=== PATIENT | female | born 1955 | race Caucasian/White ===

== ENCOUNTER 2018-12-22 10:00 | Outpatient (RCR) | payer OTHER | END 2018-12-25 | LOC: PT 10:00 | PROVIDERS: ATTEND Specialist | DX: M16.12 Unilateral primary osteoarthritis, left hip (principal) ==

== ENCOUNTER 2019-01-20 15:00 | Outpatient (RCR) | payer OTHER | END 2019-01-25 | LOC: PT 15:00 | PROVIDERS: ATTEND Specialist | DX: M16.12 Unilateral primary osteoarthritis, left hip (principal); M71.552 Other bursitis, not elsewhere classified, left hip ==

== ENCOUNTER 2019-02-03 13:00 | Outpatient (RCR) | payer OTHER | END 2019-02-24 | LOC: PT 13:00 | PROVIDERS: ATTEND Specialist | DX: M16.12 Unilateral primary osteoarthritis, left hip (principal); M70.62 Trochanteric bursitis, left hip; M25.552 Pain in left hip; M62.81 Muscle weakness (generalized) | CPT/HCPCS: 97139 ==

== ENCOUNTER 2019-03-24 07:17 | Inpatient (IN) | payer OTHER ==
[~2019-03-24] VITALS: Ht 165.1 cm; Wt 62.2 kg
[~2019-03-24 07:17] MED LIST: ACETAMINOPHEN325 M1 PO; ALEVE220 MG PO; AMLODIPINE BESYL5 MG PO; BUPIVACAINE 7.5MG/ML /DEXTROSE 82.5MG/ML 2 ML AMP INJ ONE; IBUPROFEN400 MG PO; ROPIVACAINE 246.25 MG, EPINEPHRINE HCL 1:1000 1ML 0.5 MG, CLONIDINE HCL 0.08 MG, KETORO... INJ ONE
[2019-03-24] MEDS ORDERED: DEXAMETHASONE SOD PHOS 10 MG/1 ML VIAL ONE (07:32)
[2019-03-24] MEDS ORDERED: CELECOXIB 200 MG CAP ONE (07:32)
[2019-03-24] MEDS ORDERED: CEFAZOLIN SOD 2 GM/D5W 50ML 50 ML IV ONE (07:33)
[2019-03-24] MEDS ORDERED: GABAPENTIN 300 MG CAP ONE (07:33)
[2019-03-24 07:54] LABS: BASOPHILS % 0.4 % (0.0-1.0); EOSINOPHILS # (AUTO) 0.7 (0.0-0.4); EOSINOPHILS % 9.7 % (0.0-6.0); HEMATOCRIT 37.6 % (34.2-44.1); HEMOGLOBIN 12.6 g/dL (12.0-16.0); LYMPHOCYTES # (AUTO) 1.2 (1.0-3.2); LYMPHOCYTES % 18.3 % (18.0-39.1); MEAN CORPUSCULAR HEMOGLOBIN 30.1 pg (28-32); MEAN CORPUSCULAR HGB CONC 33.5 g/dL (31-35); MEAN CORPUSCULAR VOLUME 89.7 fL (81-99); MONOCYTES # (AUTO) 0.6 (0.2-0.8); MONOCYTES % 8.8 % (4.4-11.3); NEUTROPHILS # (AUTO) 4.2 (2.1-6.9); NEUTROPHILS % 62.5 % (38.7-80.0); PLATELET COUNT 340 x10e3/uL (140-360); RED BLOOD COUNT 4.19 x10e6/uL (3.6-5.1); RED CELL DISTRIBUTION WIDTH 13.3 % (11.7-14.4)
[2019-03-24] MEDS ORDERED: VANCOMYCIN HCL 1,000 MG ONE (07:55)
[2019-03-24] MEDS ORDERED: TRANEXAMIC ACID 1,000 MG/10 ML ML ONE (07:55)
[2019-03-24] MEDS ORDERED: BACITRACIN 50,000 UNIT VIAL ONE (07:55)
[2019-03-24] MEDS ORDERED: SODIUM CHLORIDE 0.9% 500ML 500 ML ONE (08:09)
--- OUTSIDE RECORDS SUMMARY | 2019-03-24 08:10 | XMS REPORT ---
Author Author Geronimo Diego Organization [employer] Address Unknown Phone Unavailable Care Team Providers Care Wafer Polishing Worker Name Role Phone Geronimo Diego CP Unavailable Allergies, Adverse Reactions, Alerts Substance Reaction Event Type N.K.D.A. Info Not Available Non Drug Allergy Problems Problem Type Condition Code Onset Dates Condition Status Assessment Gastroesophageal reflux disease without esophagitis K21.9 Active Problem Annual physical exam Z00.00 Active Assessment HTN (hypertension), benign I10 Active Assessment Counseling on health promotion and disease prevention Z71.89 Active Problem HTN (hypertension), benign I10 Active Problem Hot flashes due to menopause N95.1 Active Problem Gastroesophageal reflux disease without esophagitis K21.9 Active Problem ASCUS of cervix with negative high risk HPV R87.610 Active Problem HTN (hypertension) I10 Active Problem Primary insomnia F51.01 Active Problem Essential hypertension I10 Active Medications Medication Code System Code Instructions Start Date End Date Status Dosage Vitamin D-3 [facility] 33354706498 1000 UNIT Orally Once a day Active 1 capsule Calcium [facility] 34604947376 600 MG Orally Once a day Active 1 tablet with meals Benadryl NDC 0 Active not defined Phenylephrine HCl [facility] [address]-00 as needed Active not defined Turmeric [facility] [address] 800 MG Orally once a day Active 1 capsule Vitamin B12 [facility] 95246521842 1000 MCG Orally Once a day Active 1 tablet Amlodipine Besylate [facility] 66867834772 5 orally daily Active TAKE ONE TABLET BY MOUTH DAILY Oregano NDC 0 Active not defined Betamethasone Dipropionate [facility] 29185647712 0.05 % Externally Once a day February 24, 2018 Active 1 application to affected area Centrum Adults [facility] [address]-72 Active not defined Vital Signs Date/Time: May 27, 2018 BMI 24.25 Index Weight 148 lbs Height 65.5 in Temperature 98.3 F Blood Pressure Diastolic 91 mm Hg Blood Pressure Systolic 147 mm Hg Results No Known Results Summary Purpose eClinicalWorks Submission
--- OUTSIDE RECORDS SUMMARY | 2019-03-24 08:10 | XMS REPORT ---
Author Author Geronimo Diego Organization [employer] Address Unknown Phone Unavailable Care Team Providers Care Brick Carrier Name Role Phone Geronimo Diego CP Unavailable Allergies, Adverse Reactions, Alerts Substance Reaction Event Type N.K.D.A. 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 Active Assessment Other specified disorders of bone density and structure, left thigh M85.852 Active Assessment Primary insomnia F51.01 Active Problem Essential hypertension I10 Active Problem ASCUS of cervix with negative high risk HPV R87.610 Active Problem Primary insomnia F51.01 Active Assessment HTN (hypertension) I10 Active Assessment ASCUS of cervix with negative high risk HPV R87.610 Active Problem Annual physical exam Z00.00 Active Problem HTN (hypertension) I10 Active Medications Medication Code System Code Instructions Start Date End Date Status Dosage Amlodipine Besylate [facility] [address]-29 5 MG Orally Once a day Jun 18, 2016 Active 1 tablet Calcium [facility] [address] 600 MG Orally Once a day Active 1 tablet with meals Calcium-Vitamin D [facility] [address] Active not defined Vitamin C [facility] [address] Active not defined Vitamin D-3 [facility] [address] 1000 UNIT Orally Once a day Active 1 capsule Turmeric [facility] [address] 800 MG Orally once a day Active 1 capsule Vitamin B-12 [facility] [address]-70 1000 MCG Orally Once a day Active 1 tablet Amlodipine Besylate [facility] 58473782217 5 Active TAKE ONE TABLET BY MOUTH DAILY Varicella-Zoster Immune Glob [facility] [address]-90 125 UNIT Intramuscular Sep 13, 2016 Active as directed Centrum Adults [facility] [address]-95 Active not defined Vital Signs Date/Time: May 06, 2017 BMI 24.42 Index Weight 149 lbs Height 65.5 in Temperature 98.3 F Blood Pressure Diastolic 83 mm Hg Blood Pressure Systolic 127 mm Hg Results No Known Results Summary Purpose eClinicalWorks Submission
--- OUTSIDE RECORDS SUMMARY | 2019-03-24 08:10 | XMS REPORT ---
Author Author Geronimo Diego Organization [employer] Address Unknown Phone Unavailable Care Team Providers Care It Security Administrator Name Role Phone Geronimo Diego CP Unavailable Allergies, Adverse Reactions, Alerts Substance Reaction Event Type N.K.D.A. Info Not Available Non Drug Allergy Problems Problem Type Condition Code Onset Dates Condition Status Assessment HTN (hypertension) I10 Active Assessment Right hip pain M25.551 Active Problem Primary insomnia F51.01 Active Problem Essential hypertension I10 Active Problem Hot flashes due to menopause N95.1 Active Problem Annual physical exam Z00.00 Active Assessment Hot flashes due to menopause N95.1 Active Problem ASCUS of cervix with negative high risk HPV R87.610 Active Problem HTN (hypertension) I10 Active Medications Medication Code System Code Instructions Start Date End Date Status Dosage Phenylephrine HCl [facility] [address]-01 as needed Active not defined Amlodipine Besylate [facility] 89623894941 5 MG Orally Once a day Jun 18, 2016 Active 1 tablet Calcium [facility] 69173493824 600 MG Orally Once a day Active 1 tablet with meals Turmeric [facility] [address] 800 MG Orally once a day Active 1 capsule Centrum Adults [facility] [address]-68 Active not defined Vitamin B12 [facility] 42710022540 1000 MCG Orally Once a day Active 1 tablet Amitriptyline HCl [facility] 01161305057 25 MG Orally Once a day Nov 06, 2017 Active 1 tablet Vitamin D-3 [facility] 72823804751 1000 UNIT Orally Once a day Active 1 capsule Vital Signs Date/Time: Nov 06, 2017 BMI 23.84 Index Weight 145.5 lbs Height 65.5 in Temperature 99.4 F Blood Pressure Diastolic 84 mm Hg Blood Pressure Systolic 136 mm Hg Results No Known Results Immunizations Vaccine Administration Date Afluria (IIV4) Flu Vacc IM Nov 06, 2017 Summary Purpose eClinicalWorks Submission
--- OUTSIDE RECORDS SUMMARY | 2019-03-24 08:10 | XMS REPORT ---
[facility] Address Unknown Phone Unavailable Care Team Providers Care Local Az Truck Driver Name Role Phone Unavailable Unavailable Payers Payer Name Policy Type Policy Number Effective Date Expiration Date Problems This patient has no known problems. Allergies, Adverse Reactions, Alerts Allergy Name Allergy Type Status Severity Reaction(s) Onset Date Inactive Date Treating Clinician Comments No Known Allergies DA Active U 2018-10-07 00:00:00 Medications This patient has no known medications. Results Test Description Test Time Test Comments Text Results Atomic Results Result Comments SCR MAMM BILATERAL ERNESTINE CAD DIGITAL 2018-10-23 07:44:31 - SCR MAMM BILATERAL ERNESTINE CAD DIGITALBILATERAL DIGITAL SCREENING MAMMOGRAM 3D/2D WITH CAD: 10/01/2018CLINICAL: Asymptomatic. Digital breast tomosynthesis was performed in addition to routine CC and MLO views. Current mammographic images were evaluated by either a Pixelpipe M-Vu or a [employer] ImageChecker CAD (computer aided detection system). No prior exams were available for comparison. There are sca ttered fibroglandular tissues in both breasts. No suspicious mass, architectural distortion, malignant type calcification, or lymph node abnormality detected. IMPRESSION: NEGATIVEThere is no mammographic evidence of malignancy. Resume annual screening mammography in one year. Basim smith/penrey:10/23/2018 07:44:31 Leader Tier: Terra Chanel , [facility]-FWletter sent: BIRADS 1-2 Normal Mammogram BI-RADS: 1 Negative SCR MAMM BILATERAL ERNESTINE CAD DIGITAL 2018-10-23 07:44:31 AMENDMENT: 11/21/2018 Ankita Ashton M.D. Prior exams dating back to 01/10/15 are now available for comparison.Bilateral breasts: No significant change the prior report. There is no mammographic evidence of malignancy. Resume annual screening mammography in one year.BI-RADS 1. Negative.Amended BI-RADS: 1 Negative letter sent: Normal Comparison Completed
--- OUTSIDE RECORDS SUMMARY | 2019-03-24 08:10 | XMS REPORT ---
Author Author Geronimo Diego [facility] eClinicalWorks Address Unknown Phone Unavailable Care Team Providers Care Commercial Relationship Manager Name Role Phone Geronimo Diego Unavailable Allergies, Adverse Reactions, Alerts Substance Reaction Event Type N.K.D.A. Info Not Available Non Drug Allergy Encounters Encounter Location Date test [place] Jun 18, 2016 sick visit 2 [facility] [place] Jun 18, 2016 ANNUAL PHYSICAL [facility] Jun 04, 2016 Needs call back from Medical Staff [facility] [place] [place] Jun 11, 2016 Unknown [facility] [place] Jun 13, 2016 Problems Problem Type Condition ICD-9 Code Onset Dates Condition Status Problem HTN (hypertension) I10 Active Assessment HTN (hypertension) I10 Active Problem Annual physical exam Z00.00 Active Medications Medication Code System Code Instructions Start Date End Date Status Dosage [facility] [address] Active Unknown [facility] [address]-83 Active Unknown Amlodipine Besylate [facility] [address]-62 5 MG Orally Once a day Jun 18, 2016 Active 1 tablet Vitamin B-12 [facility] [address]-20 1000 MCG Orally Once a day Active 1 tablet Calcium-Vitamin D [facility] [address] Active Unknown Social History Social History Element Qualifiers Date Reported Tobacco Use: . Are you a: Never Smoker Jun 18, 2016 Use of recreational / street drugs? . Answer: No Jun 18, 2016 Alcohol Screening: . Points: 2, Interpretation: Negative Jun 18, 2016 Sexual Hx: . Had sex in the last 12 months (vaginal, oral, or anal)?: No, Have you ever had an STD?: No Jun 18, 2016 Marital Status: . Single Jun 18, 2016 Caffeine intake? . Status: Yes, What type: Coffee Jun 18, 2016 Do you exercise? . Answer: Yes, Type: walking, swimming, Yoga Jun 18, 2016 Do you drink alcohol? . Do you drink alcohol? Yes Jun 18, 2016 Vital Signs Date/Time: Jun 18, 2016 Weight 133 lbs Height 65.5 in Temperature 97.1 F Blood Pressure Diastolic 98 mm Hg Blood Pressure Systolic 142 mm Hg Summary Purpose eClinicalWorks Submission
--- OUTSIDE RECORDS SUMMARY | 2019-03-24 08:10 | XMS REPORT ---
Author Author Geronimo Diego Organization [employer] Address Unknown Phone Unavailable Care Team Providers Care Twister Tender Name Role Phone Geronimo Diego CP Unavailable Encounters Encounter Location Date test [facility] Jun 18, 2016 ANNUAL PHYSICAL [facility] [place] Jun 04, 2016 Needs call back from Medical Staff [facility] [place] [place] Jun 11, 2016 Unknown [facility] [place] [place] Jun 13, 2016 Problems Problem Type Condition ICD-9 Code Onset Dates Condition Status Problem HTN (hypertension) I10 Active Problem Annual physical exam Z00.00 Active Social History Social History Element Qualifiers Date [...] you drink alcohol? Yes Jun 18, 2016 Summary Purpose eClinicalWorks Submission
--- OUTSIDE RECORDS SUMMARY | 2019-03-24 08:10 | XMS REPORT ---
Author Author Geronimo Diego Organization [employer] Address Unknown Phone Unavailable Care Team Providers Care Casting Associate Name Role Phone Geronimo Diego CP Unavailable Allergies, Adverse Reactions, Alerts Substance Reaction Event Type N.K.D.A. Info Not Available Non Drug Allergy Problems Problem Type Condition Code Onset Dates Condition Status Assessment Left hip pain M25.552 Active Problem Annual physical exam Z00.00 Active Problem HTN (hypertension), benign I10 Active Problem Hot flashes due to menopause N95.1 Active Problem Gastroesophageal reflux disease without esophagitis K21.9 Active Problem ASCUS of cervix with negative high risk HPV R87.610 Active Problem HTN (hypertension) I10 Active Problem Primary insomnia F51.01 Active Problem Essential hypertension I10 Active Assessment Flu vaccine need Z23 Active Assessment Colon cancer screening Z12.11 Active Assessment Osteoporosis screening Z13.820 Active Assessment HTN (hypertension) I10 Active Assessment Breast cancer screening Z12.31 Active Medications Medication Code System Code Instructions Start Date End Date Status Dosage Turmeric [facility] [address] 800 MG Orally once a day Active 1 capsule Vitamin D-3 [facility] 03252351743 1000 UNIT Orally Once a day Active 1 capsule Betamethasone Dipropionate [facility] 97209465509 0.05 % Externally Once a day February 24, 2018 Active 1 application to affected area Benadryl NDC 0 Active not defined Calcium [facility] 46107056235 600 MG Orally Once a day Active 1 tablet with meals Centrum Adults [facility] [address]-17 Active not defined Oregano NDC 0 Active not defined Amlodipine Besylate [facility] 59563102250 5 orally daily Active TAKE ONE TABLET BY MOUTH DAILY Phenylephrine HCl [facility] [address]-34 as needed Active not defined Vitamin B12 [facility] 07038469413 1000 MCG Orally Once a day Active 1 tablet Vital Signs Date/Time: Aug 27, 2018 BMI 23.60 Index Weight 144 lbs Height 65.5 in Temperature 97.4 F Blood Pressure Diastolic 87 mm Hg Blood Pressure Systolic 138 mm Hg Results No Known Results Immunizations Vaccine Administration Date 2017 Single Syringe Fluecelvax Quad Aug 27, 2018 Summary Purpose eClinicalWorks Submission
--- OUTSIDE RECORDS SUMMARY | 2019-03-24 08:10 | XMS REPORT ---
Author Author Geronimo Diego Organization [employer] Address Unknown Phone Unavailable Care Team Providers Care Investigation Division Captain Name Role Phone Geronimo Diego CP Unavailable Encounters Encounter Location Date ANNUAL PHYSICAL [facility] Jun 04, 2016 Needs call back from Medical Staff [facility] [place] Jun 11, 2016 Problems Problem Type Condition ICD-9 Code Onset Dates Condition Status Problem HTN (hypertension) I10 Active Problem Annual physical exam Z00.00 Active Social History Social History Element Qualifiers Date Reported Tobacco Use: . Are you a: Never Smoker Jun 04, 2016 Use of recreational / street drugs? . Answer: No Jun 04, 2016 Alcohol Screening: . Points: 2, Interpretation: Negative Jun 04, 2016 Sexual Hx: . Had sex in the last 12 months (vaginal, oral, or anal)?: No, Have you ever had an STD?: No Jun 04, 2016 Marital Status: . Single Jun 04, 2016 Caffeine intake? . Status: Yes, What type: Coffee Jun 04, 2016 Do you exercise? . Answer: Yes, Type: walking, swimming, Yoga Jun 04, 2016 Do you drink alcohol? . Do you drink alcohol? Yes Jun 04, 2016 Summary Purpose eClinicalWorks Submission
--- OUTSIDE RECORDS SUMMARY | 2019-03-24 08:10 | XMS REPORT ---
Author Author Geronimo Diego [facility] eClinicalWorks Address Unknown Phone Unavailable Care Team Providers Care Dairy Scientist Name Role Phone Geronimo Diego CP Unavailable Allergies, Adverse Reactions, Alerts Substance Reaction Event Type N.K.D.A. Info Not Available Non Drug Allergy Encounters Encounter Location Date test [facility] Jun 18, 2016 sick visit 2 [facility] Jun 18, 2016 Unknown [facility] [place] January 01, 2017 [facility] [place] [facility] [place] December 31, 2016 ANNUAL PHYSICAL [facility] [place] Jun 04, 2016 Needs call back from Medical Staff [facility] [place] Jun 11, 2016 Unknown [facility] Jun 13, 2016 Problems Problem Type Condition ICD-9 Code Onset Dates Condition Status Assessment Skin rash R21 Active Problem ASCUS of cervix with negative high risk HPV R87.610 Active Problem Annual physical exam Z00.00 Active Problem Essential hypertension I10 Active Assessment HTN (hypertension) I10 Active Assessment ASCUS of cervix with negative high risk HPV R87.610 Active Problem HTN (hypertension) I10 Active Assessment Hip pain, left M25.552 Active Medications Medication Code System Code Instructions Start Date End Date Status [facility]osage [facility] [address]-31 1000 MCG Orally Once a day Active 1 tablet Calcium-Vitamin D [facility] [address] Active Unknown Centrum Adults [facility] [address]-75 Active Unknown Amlodipine Besylate [facility] [address]-89 5 MG Orally Once a day Jun 18, 2016 Active 1 tablet Vitamin C [facility] [address] Active Unknown Varicella-Zoster Immune Glob [facility] [address]-38 125 UNIT Intramuscular Sep 13, 2016 Active as directed Social History Social History Element Qualifiers Date Reported Tobacco Use: . Are you a: Never Smoker December 31, 2016 Use of recreational / street drugs? . Answer: No December 31, 2016 Alcohol Screening: . Points: 2, Interpretation: Negative December 31, 2016 Sexual Hx: . Had sex in the last 12 months (vaginal, oral, or anal)?: No, Have you ever had an STD?: No December 31, 2016 Marital Status: . Single December 31, 2016 Caffeine intake? . Status: Yes, What type: Coffee December 31, 2016 Do you exercise? . Answer: Yes, Type: walking, swimming, Yoga December 31, 2016 Do you drink alcohol? . Do you drink alcohol? Yes December 31, 2016 Occupation: . Employed December 31, 2016 Vital Signs Date/Time: December 31, 2016 Weight 135.5 lbs Height 65.5 in Temperature 97.2 F Blood Pressure Diastolic 91 mm Hg Blood Pressure Systolic 132 mm Hg Summary Purpose eClinicalWorks Submission
--- OUTSIDE RECORDS SUMMARY | 2019-03-24 08:10 | XMS REPORT ---
Author Author Geronimo Diego Organization [employer] Address Unknown Phone Unavailable Care Team Providers Care Entry Level Sales Associate Name Role Phone Geronimo Diego CP Unavailable Allergies, Adverse Reactions, Alerts Substance Reaction Event Type N.K.D.A. Info Not Available Non Drug Allergy Problems Problem Type Condition Code Onset Dates Condition Status Assessment Essential hypertension I10 Active Problem Primary insomnia F51.01 Active Problem Essential hypertension I10 Active Problem Hot flashes due to menopause N95.1 Active Problem Annual physical exam Z00.00 Active Assessment Skin rash R21 Active Problem ASCUS of cervix with negative high risk HPV R87.610 Active Problem HTN (hypertension) I10 Active Medications Medication Code System Code Instructions Start Date End Date Status Dosage Medrol [facility] 54790386605 4 MG Orally as directed Dec 03, 2017 Active as directed Mucinex [facility] [address]-09 Active not defined Amlodipine Besylate [facility] 83480982389 5 MG Orally Once a day Jun 18, 2016 Active 1 tablet Amitriptyline HCl [facility] 60083567287 25 MG Orally Once a day Nov 06, 2017 Active [address] [facility] 60988922743 600 MG Orally Once a day Active 1 tablet with meals Phenylephrine HCl [facility] [address]-24 as needed Active not defined Vitamin D-[address] [facility] 66568349874 1000 UNIT Orally Once a day Active [address] [facility] [address] 800 MG Orally once a day Active 1 capsule Amlodipine Besylate [facility] 89955369685 5 Active TAKE ONE TABLET BY MOUTH DAILY Benadryl ND 0 Active not defined Ranitidine HCl [facility] 72535701338 150 MG Orally Once a day February 24, 2018 Active 1 tablet at bedtime Betamethasone Dipropionate [facility] 74901403853 0.05 % Externally Once a day February 24, 2018 Active 1 application to affected area Vitamin B12 [facility] 62187141175 1000 MCG Orally Once a day Active 1 tablet Centrum Adults [facility] [address]-82 Active not defined MethylPREDNISolone [facility] 77694110063 4 MG Orally As directed February 24, 2018 Active as directed Vital Signs Date/Time: February 24, 2018 BMI 23.84 Index Weight 145.5 lbs Height 65.5 in Temperature 98.2 F Blood Pressure Diastolic 93 mm Hg Blood Pressure Systolic 153 mm Hg Results No Known Results Summary Purpose eClinicalWorks Submission
--- OUTSIDE RECORDS SUMMARY | 2019-03-24 08:10 | XMS REPORT | Continuity of Care Document ---
Author Author [facility] Interface Address Unknown Phone Unavailable Problems Problem Status Onset Date Classification Date Reported Comments Source Primary insomnia Active Problem 09/03/2018 Encamille Basurto Essential hypertension Active Problem 09/03/2018 Encamille Rodriguesm Hot flashes due to menopause Active Problem 09/03/2018 Enerinnet Liliam ASCUS of cervix with negative high risk HPV Active Problem 09/03/2018 Enerinnet Rakrupam HTN Active Problem 09/03/2018 Encamille Rodriguesm Passing flatus Active Diagnosis 05/12/2017 Ruth Rodriguesm Other specified disorders of bone density and structure, right thigh Active Diagnosis 05/12/2017 Ruth Rodriguesm Other specified disorders of bone density and structure, left thigh Active Diagnosis 05/12/2017 Encamille Rodriguesm Right hip pain Active Diagnosis 11/19/2017 Enerinnet Liliam Left hip pain Active Diagnosis 09/03/2018 Ruth Rodriguesm HTN , benign Active Problem 09/03/2018 Ruth Basurto Gastroesophageal reflux disease without esophagitis Active Problem 09/03/2018 Ruth Rodriguesm Flu vaccine need Active Diagnosis 09/03/2018 Ruth Basurto Osteoporosis screening Active Diagnosis 09/03/2018 Ruth Basurto Breast cancer screening Active Diagnosis 09/03/2018 Ruth Rodriguesm Hip pain, left Active Diagnosis 01/02/2017 Ruth Basurto Counseling on health promotion and disease prevention Active Diagnosis 06/04/2018 Ruth Rodriguesm Persistent cough Active Diagnosis 12/06/2017 Ruth Basurto Acute sinusitis with symptoms > 10 days Active Diagnosis 12/06/2017 Ruth Basurto Skin rash Active Diagnosis 03/03/2018 Encamille Rodriguesm Hip pain Active Diagnosis 01/03/2017 Ruth Basurto Medications Medication Details Route Status Patient Instructions Ordering Provider Order Date Source Betamethasone Dipropionate 1 application to affected area Externally Active 0.05 % Externally Once a day Brandie 02/24/2018 Ruth Basurto Ranitidine HCl 1 tablet at bedtime Orally Active 150 MG Orally Once a day [facility] 02/24/[facility] MethylPREDNISolone as directed Orally Active 4 MG Orally As directed [facility] 02/24/2018 [facility] Cefdinir 1 capsule Orally Active 300 MG Orally every 12 hrs [facility] 12/03/2017 [facility] Medrol as directed Orally Active 4 MG Orally as directed [facility] 12/03/2017 [facility] Amitriptyline HCl 1 tablet Orally Active 25 MG Orally Once a day [facility] 11/06/2017 [facility] Varicella-Zoster Immune Glob as directed Intramuscular Active 125 UNIT Intramuscular [facility] 09/13/2016 [facility] Varicella-Zoster Immune Glob as directed Intramuscular Active 125 UNIT Intramuscular [facility] 09/13/2016 [facility] Amlodipine Besylate 1 tablet Orally Active 5 MG Orally Once a day [facility] 06/18/2016 [facility] Amlodipine Besylate 1 tablet Orally Active 5 MG Orally Once a day [facility] 06/18/2016 [facility] Calcium 1 tablet with meals Orally Active 600 MG Orally Once a day [facility] Calcium-Vitamin D not defined NA Active [facility] Vitamin C not defined NA Active [facility] Vitamin D-3 1 capsule Orally Active 1000 UNIT Orally Once a day [facility] Turmeric 1 capsule Orally Active 800 MG Orally once a day [facility] Vitamin B-12 1 tablet Orally Active 1000 MCG Orally Once a day [facility] Amlodipine Besylate TAKE ONE TABLET BY MOUTH DAILY orally Active 5 orally daily [facility] Centrum Adults not defined NA Active [facility] Phenylephrine HCl not defined NA Active as needed [facility] Calcium 1 tablet with meals Orally Active 600 MG Orally Once a day [facility] Vitamin B12 1 tablet Orally Active 1000 MCG Orally Once a day [facility] Vitamin D-3 1 capsule Orally Active 1000 UNIT Orally Once a day [facility] Turmeric 1 capsule Orally Active 800 MG Orally once a day [facility] Benadryl not defined NA Active Brandie Enayet Rahim Oregano not defined NA Active Brandie Enayet Rahim Phenylephrine HCl not defined NA Active as needed Brandie Enayet Rahim Mucinex not defined NA Active Brandie Enayet Rahim Calcium-Vitamin D Unknown NA Active Brandie Enayet Rahim Vitamin C Unknown NA Active Brandie Enayet Rahim Allergies, Adverse Reactions, Alerts Substance Category Reaction Severity Reaction type Status Date Reported Comments Source N.K.D.A. Adverse Reaction Info Not Available Adverse Reaction Active 08/27/2018 Enayet Rahim Immunizations Immunization Date Given Site Status Last Updated Comments Source 2017 Single Syringe Fluecelvax Quad 08/27/2018 completed Enayet Rahim Afluria (IIV4) Flu Vacc IM 11/06/2017 completed Enayet Rahim Results Order Name Results Value Reference Range Date Interpretation Comments Source Vital Signs Vital Sign Value Date Comments Source Weight 144 08/27/2018 Enayet Rahim Height 65.5 08/27/2018 Enayet Rahim Temperature Oral (F) 97.4 F 08/27/2018 Enayet Rahim Diastolic (mm Hg) 87 08/27/2018 Enayet Rahim Systolic (mm Hg) 138 08/27/2018 Enayet Rahim Weight 148 05/27/2018 Enayet Rahim Height 65.5 05/27/2018 Enayet Rahim Temperature Oral (F) 98.3 F 05/27/2018 Enayet Rahim Diastolic (mm Hg) 91 05/27/2018 Enayet Rahim Systolic (mm Hg) 147 05/27/2018 Enayet Rahim Weight 145.5 02/24/2018 Enayet Rahim Height 65.5 02/24/2018 Enayet Rahim Temperature Oral (F) 98.2 F 02/24/2018 Enayet Rahim Diastolic (mm Hg) 93 02/24/2018 Enayet Rahim Systolic (mm Hg) 153 02/24/2018 Enayet Rahim Weight 144 12/03/2017 Enayet Rahim Height 65.5 12/03/2017 Enayet Rahim Temperature Oral (F) 98.8 F 12/03/2017 Enayet Rahim Diastolic (mm Hg) 85 12/03/2017 Enayet Rahim Systolic (mm Hg) 126 12/03/2017 Enayet Rahim Weight 145.5 11/06/2017 Enayet Rahim Height 65.5 11/06/2017 Enayet Rahim Temperature Oral (F) 99.4 F 11/06/2017 Enayet Rahim Diastolic (mm Hg) 84 11/06/2017 Enayet Rahim Systolic (mm Hg) 136 11/06/2017 Enayet Rahim Weight 149 05/06/2017 Enayet Rahim Height 65.5 05/06/2017 Enayet Rahim Temperature Oral (F) 98.3 F 05/06/2017 Enayet Rahim Diastolic (mm Hg) 83 05/06/2017 Enayet Rahim Systolic (mm Hg) 127 05/06/2017 Enayet Rahim Weight 135.5 12/31/2016 Enayet Rahim Height 65.5 12/31/2016 Enayet Rahim Temperature Oral (F) 97.2 F 12/31/2016 Enayet Rahim Diastolic (mm Hg) 91 12/31/2016 Enayet Rahim Systolic (mm Hg) 132 12/31/2016 Enayet Rahim Weight 133 06/18/2016 Enayet Rahim Height 65.5 06/18/2016 Enayet Rahim Temperature Oral (F) 97.1 F 06/18/2016 Enayet Rahim Diastolic (mm Hg) 98 06/18/2016 Enayet Rahim Systolic (mm Hg) 142 06/18/2016 Enayet Rahim Weight 132 06/04/2016 Enayet Rahim Height 65.5 06/04/2016 Enayet Rahim Temperature Oral (F) 97.6 F 06/04/2016 Enayet Rahim Diastolic (mm Hg) 100 06/04/2016 Enayet Rahim Systolic (mm Hg) 158 06/04/2016 Enayet Rahim Encounters Location Location Details Encounter Type Encounter Number Reason For Visit Attending Provider ADM Date DC Date Status Source Ruth Basurto MD, PA ANNUAL PHYSICAL [id number] 06/04/2016 06/04/2016 Ruth Basurto MD, PA ANNUAL PHYSICAL [id number] 06/04/2016 06/04/2016 Ruth Basurto MD, PA ANNUAL PHYSICAL [id number] 06/04/2016 06/04/2016 Ruth Basurto MD, PA ANNUAL PHYSICAL [id number] 06/04/2016 06/04/2016 Ruth Basurto MD, PA ANNUAL PHYSICAL [id number] 06/04/2016 06/04/2016 Ruth Basurto MD, PA ANNUAL PHYSICAL [id number] 06/04/2016 06/04/2016 Ruth Basurto MD, PA ANNUAL PHYSICAL [id number] 06/04/2016 06/04/2016 Ruth Basurto MD, PA ANNUAL PHYSICAL [id number] 06/04/2016 06/04/2016 Ruth Basurto MD, PA Needs call back from Medical Staff [id number] 06/11/2016 06/11/2016 Ruth Basurto MD, PA Needs call back from Medical Staff [id number] 06/11/2016 06/11/2016 Ruth Basurto MD, PA Needs call back from Medical Staff [id number] 06/11/2016 06/11/2016 Ruth Basurto MD, PA Needs call back from Medical Staff [id number] 06/11/2016 06/11/2016 Ruth Basurto MD, PA Needs call back from Medical Staff [id number] 06/11/2016 06/11/2016 Ruth Basurto MD, PA Needs call back from Medical Staff [id number] 06/11/2016 06/11/2016 Ruth Basurto MD, PA Needs call back from Medical Staff [id number] 06/11/2016 06/11/2016 Ruth Basurto MD, PA Unknown [id number] 06/13/2016 06/13/2016 Ruth Basurto MD, PA Unknown [id number] 06/13/2016 06/13/2016 Ruth Basurto MD, PA Unknown [id number] 06/13/2016 06/13/2016 Ruth Basurto MD, PA Unknown [id number] 06/13/2016 06/13/2016 Ruth Basurto MD, PA Unknown [id number] 06/13/2016 06/13/2016 Ruth Basurto MD, PA Unknown [id number] 06/13/2016 06/13/2016 Ruth Basurto MD, PA sick visit 2 [id number] 06/18/2016 06/18/2016 Ruth Basurto MD, PA test [id number] 06/18/2016 06/18/2016 Ruth Basurto MD, [place] test [id number] 06/18/2016 06/18/2016 Ruth Basurto MD, PA sick visit 2 [id number] 06/18/2016 06/18/2016 Ruth Basurto MD, PA sick visit 2 [id number] 06/18/2016 06/18/2016 Ruth Basurto MD, PA sick visit 2 [id number] 06/18/2016 06/18/2016 Ruth Basurto MD, PA test [id number] 06/18/2016 06/18/2016 Ruth Basurto MD, PA test [id number] 06/18/2016 06/18/2016 Ruth Basurto MD, PA test [id number] 06/18/2016 06/18/2016 Ruth Basurto MD, PA 4 [facility] [id number] 12/31/2016 12/31/2016 Ruth Basurto MD, PA 4 [facility] [id number] 12/31/2016 12/31/2016 Ruth Basurto MD, PA Unknown [id number] 01/01/2017 01/01/2017 Ruth Basurto MD, [place] Unknown [id number] 01/01/2017 01/01/2017 Ruth Basurto MD, PA Unknown [id number] 01/01/2017 01/01/2017 Ruth Basurto MD, PA Unknown [id number] 01/02/2017 01/02/2017 Ruth Basurto Discharged Recurring [id number] BARTOLOME LYNCH MD 12/10/2018 12/25/2018 [facility] Discharged Recurring [id number] BARTOLOME LYNCH MD 12/30/2018 01/25/2019 [facility] Discharged Recurring [id number] BARTOLOME LYNCH MD 02/03/2019 02/24/2019 [facility] Procedures Procedure Code Date Perfomer Comments Source
--- OUTSIDE RECORDS SUMMARY | 2019-03-24 08:10 | XMS REPORT ---
Author Author Geronimo Diego Organization [employer] Address Unknown Phone Unavailable Care Team Providers Care Ems Helicopter Pilot Name Role Phone Geronimo Diego CP Unavailable Encounters Encounter Location Date test Ruth Basurto MD, [place] Jun 18, 2016 sick visit 2 Ruth Basurto MD, [place] Jun 18, 2016 Unknown Ruth Basurto MD, [place] January 01, 2017 4 bill hfollow up Ruth Basurto MD, [place] December 31, 2016 ANNUAL PHYSICAL Ruth Basurto MD, PA Jun 04, 2016 Needs call back from Medical Staff Ruth Basurto MD, PA Jun 11, 2016 Unknown Ruth Basurto MD, [place] Jun 13, 2016 Unknown Ruth Basurto MD, [place] January 02, 2017 Problems Problem Type Condition ICD-9 Code Onset Dates Condition Status Problem ASCUS of cervix with negative high risk HPV R87.610 Active Problem Annual physical exam Z00.00 Active Problem Essential hypertension I10 Active Problem HTN (hypertension) I10 Active Assessment Hip pain M25.559 Active Social History Social History Element Qualifiers [...] 2016 Occupation: . Employed December 31, 2016 Summary Purpose [employer] Submission
--- OUTSIDE RECORDS SUMMARY | 2019-03-24 08:10 | XMS REPORT ---
Author Author Geronimo Diego Organization [employer] Address Unknown Phone Unavailable Care Team Providers Care Mc Kay Stitcher Name Role Phone Geronimo Diego CP Unavailable Allergies, Adverse Reactions, Alerts Substance Reaction Event Type N.K.D.A. Info Not Available Non Drug Allergy Problems Problem Type Condition Code Onset Dates Condition Status Assessment Persistent cough R05 Active Problem Primary insomnia F51.01 Active Problem Essential hypertension I10 Active Problem Hot flashes due to menopause N95.1 Active Problem Annual physical exam Z00.00 Active Assessment Acute sinusitis with symptoms > 10 days J01.90 Active Problem ASCUS of cervix with negative high risk HPV R87.610 Active Problem HTN (hypertension) I10 Active Medications Medication Code System Code Instructions Start Date End Date Status Dosage Turmeric [facility] [address]-12310 800 MG Orally once a day Active 1 capsule Amlodipine Besylate [facility] 64000656938 5 MG Orally Once a day Jun 18, 2016 Active 1 tablet Vitamin B12 [facility] 92147035614 1000 MCG Orally Once a day Active 1 tablet Centrum Adults [facility] [address]-44 Active not defined Calcium [facility] 33161848923 600 MG Orally Once a day Active 1 tablet with meals Vitamin D-3 [facility] 08973605351 1000 UNIT Orally Once a day Active 1 capsule Phenylephrine HCl [facility] [address]-51 as needed Active not defined Amitriptyline HCl [facility] 38427031637 25 MG Orally Once a day Nov 06, 2017 Active 1 tablet Mucinex [facility] [address]-40 Active not defined Cefdinir [facility] 16138832198 300 MG Orally every 12 hrs Dec 03, 2017 Dec 13, 2017 Active 1 capsule Medrol [facility] 43977736590 4 MG Orally as directed Dec 03, 2017 Active as directed Vital Signs Date/Time: Dec 03, 2017 BMI 23.60 Index Weight 144 lbs Height 65.5 in Temperature 98.8 F Blood Pressure Diastolic 85 mm Hg Blood Pressure Systolic 126 mm Hg Results No Known Results Summary Purpose [employer] Submission
--- OUTSIDE RECORDS SUMMARY | 2019-03-24 08:10 | XMS REPORT ---
Author Author Geronimo Diego Organization [employer] Address Unknown Phone Unavailable Care Team Providers Care Strategic Partnership Specialist Name Role Phone Geronimo Diego CP Unavailable Allergies No Known Allergies Problems Problem Type Condition Code Onset Dates Condition Status Problem Primary insomnia F51.01 Active Problem Essential hypertension I10 Active Problem Hot flashes due to menopause N95.1 Active Problem Annual physical exam Z00.00 Active Problem ASCUS of cervix with negative high risk HPV R87.610 Active Problem HTN (hypertension) I10 Active Medications No Known Medications Results No Known Results Summary Purpose [employer] Submission
--- OUTSIDE RECORDS SUMMARY | 2019-03-24 08:10 | XMS REPORT ---
Author Author Geronimo Diego Organization [employer] Address Unknown Phone Unavailable Care Team Providers Care Motocross Racer Name Role Phone Geronimo Diego CP Unavailable Encounters Encounter Location Date test Ruth Basurto MD, PA Jun 18, 2016 sick visit 2 Ruth Basurto MD, PA Jun 18, 2016 Unknown Ruth Basurto MD, [place] January 01, 2017 ANNUAL PHYSICAL Ruth Basurto MD, PA Jun [...] Active Assessment Hip pain, left M25.552 Active Social History Social History Element Qualifiers [...]
--- OUTSIDE RECORDS SUMMARY | 2019-03-24 08:10 | XMS REPORT ---
Author Author Geronimo Diego Organization [employer] Address Unknown Phone Unavailable Care Team Providers Care Machine Lay Out Worker Name Role Phone Geronimo Diego CP Unavailable Allergies, Adverse Reactions, Alerts Substance Reaction Event Type N.K.D.A. Info Not Available Non Drug Allergy Encounters Encounter Location Date ANNUAL PHYSICAL Ruth Basurto MD, [place] Jun 04, 2016 Problems Problem Type Condition ICD-9 Code Onset Dates Condition Status Problem HTN (hypertension) I10 Active Assessment Annual physical exam Z00.00 Active Problem Annual physical exam Z00.00 Active Assessment HTN (hypertension) I10 Active Medications Medication Code System Code Instructions Start Date End Date Status Dosage Calcium-Vitamin D [facility] 310[address]-06390 Active Unknown Centrum Adults [facility] [address]-34 Active Unknown Vitamin B-12 [facility] [address]-58 1000 MCG Orally Once a day Active 1 tablet Vitamin C [facility] [address] Active Unknown Social History Social History Element [...] you drink alcohol? Yes Jun 04, 2016 Vital Signs Date/Time: Jun 04, 2016 Weight 132 lbs Height 65.5 in Temperature 97.6 F Blood Pressure Diastolic 100 mm Hg Blood Pressure Systolic 158 mm Hg Summary Purpose [employer] Submission
--- OUTSIDE RECORDS SUMMARY | 2019-03-24 08:10 | XMS REPORT ---
Author Author Geronimo Diego Organization [employer] Address Unknown Phone Unavailable Care Team Providers Care Ammonia Solution Preparer Name Role Phone Geronimo Diego CP Unavailable [...]
[2019-03-24] MEDS: SODIUM CHLORIDE 0.9% 1000ML 1,000 ML IV SCH ×2 (10:25→20:25)
[2019-03-24] MEDS ORDERED: ONDANSETRON HCL INJ 2MG/ML 2ML 2 MG/ML VIAL IV PRN (10:30)
[2019-03-24] MEDS ORDERED: HYDROCODONE/APAP 5MG-325MG TAB PO PRN (10:30)
[2019-03-24] MEDS ORDERED: ZOLPIDEM TARTRATE 5 MG TAB PO PRN (10:30)
[2019-03-24] MEDS ORDERED: HYDROCODONE/APAP 7.5MG-325MG 1 EA TAB PO PRN (10:30)
[2019-03-24] MEDS ORDERED: PROMETHAZINE HCL (IM) 25 MG/ML VIAL INJ PRN (10:30)
[2019-03-24] MEDS ORDERED: KETOROLAC TROMETHAMINE 30 MG/ML VIAL IV PRN ×2 (10:30→11:45)
[2019-03-24] MEDS ORDERED: DIPHENHYDRAMINE HCL INJ 50 MG/ML VIAL IM/IV PRN (10:30)
[2019-03-24] MEDS ORDERED: ACETAMINOPHEN 650 MG SUPP PR PRN (10:30)
[2019-03-24] MEDS ORDERED: DOCUSATE SODIUM 100 MG CAP PO PRN (10:30)
--- NOTE | 2019-03-24 10:30 | NUR ---
PATIENT DME AND HOME HEALTH COMPANIES PRE-ARRANGED BY DR. SHAW'S OFFICE. PATIENT WITH HOME HEALTH AND DME CONTACT INFORMATION. PATIENT AWARE TO CALL CM IF ANY PROBLEMS OCCUR WITHIN 3 DAYS POST- DISCHARGE. HOME HEALTH EXPLAINED IN DEPTH WITH SERVICES PROVIDED. PATIENT VERBALLY UNDERSTOOD. THE FOLLOWING HOME HEALTH AND DME COMPANY VERIFIED PATIENT IS ON SERVICE WITH THEM: [facility] (P) [phone] (F) [phone] CM SPOKE TO [facility] AND CONFIRMED THAT [facility] WILL DELIVER EQUIPMENT TO BEDSIDE TOMORROW PRIOR TO DISCHARGE. [facility] (P) [phone] (F) [phone] NIKKI SPOKE TO [facility] AND CONFIRMED THAT PATIENT WILL BE SEEN MONDAY 03/26 FOR SERVICES.
[2019-03-24 11:12] VITALS: BP 125/59
--- NOTE | 2019-03-24 11:15 | NUR ---
RECEIVED PATIENT FROM RECOVERY. PATIENT A/O X3, EVEN RESPIRATIONS ON RA. BOWEL SOUNDS ACTIVE, NO EDEMA. RIGHT LEG HAS KARTHIK HOSE IN PLACE. FOOT PUMPS BILATERALLY. RIGHT HAND 20 GAUGE IV WITH IVF @ 100 CC/HR. IV INTACT AND PATENT. PATIENT HAS BOWER WITH CLEAR YELLOW URINE. VITAL SIGNS STABLE, NO SIGNS OF DISTRESS. BED LOW, WHEELS LOCKED, SIDE RAILS X2. CALL LIGHT IN REACH WILL CONTINUE TO MONITOR PATIENT.
[2019-03-24 11:40] VITALS: BP 125/59
--- NOTE | 2019-03-24 11:43 | Operative Report ---
DATE OF PROCEDURE: 03/24/2019 SURGEON: Mike Jackson MD SAMPLER PICKUP: Ravindra Modi, Certified PA. PREOPERATIVE DIAGNOSIS: Osteoarthritis, left hip. POSTOPERATIVE DIAGNOSIS: Osteoarthritis, left hip. PROCEDURE: Left total hip arthroplasty. INDICATIONS: The patient is an active 63-year-old lady, who has end-stage arthritis of her left hip. She has failed conservative management and would like to proceed with a left total hip replacement. The risks and benefits of the procedure have been explained. She states she understands and wishes to proceed. DESCRIPTION OF PROCEDURE: The patient was brought to the operating room and given a spinal anesthetic. She was given prophylactic antibiotics and tranexamic acid in the holding area. She was also given a light general anesthetic. She was positioned in the right lateral decubitus position. Her left hip was prepped and draped in a sterile manner. A preoperative time-out was performed. A limited incision posterior approach was made to the left hip. Care was taken to avoid injury to the sciatic nerve. Hemostasis was obtained with electrocautery. A deep Charnley self-retaining retractor was placed. The posterior capsule was carefully exposed. Further hemostasis was obtained with electrocautery. The short external rotators and posterior capsule were released to allow dislocation of the hip. An oscillating saw was used to resect the femoral head. Complete loss of articular cartilage and inflammatory pitting was noted on the femoral head. Acetabular retractors were carefully placed. Labral remnants were excised. The true floor of the acetabulum was established with a 46 mm reamer. The socket was then carefully reamed to 55 mm. A large subchondral cyst in the superior dome of the acetabulum was debrided. Autologous bone graft was placed into the cystic cavity and along the medial wall. A Emir Biomet 56 mm outer diameter OsseoTi socket was then impacted into place. Good fixation was obtained. Fixation was augmented with a single 25 mm screw placed into the ilium. The hip had been thoroughly irrigated with a shower tip pulsatile lavage in diluted polymyxin and vancomycin spray throughout the case. A highly cross-linked polyethylene liner with a 36 mm inner diameter was then seated into place. Care was taken to make sure that there was no evidence of soft tissue interposition. A portion of a 100 mL premixed pericapsular SUE injection was placed around the socket. The socket was packed with a moistly soaked lap sponge and attention was directed towards the proximal femur. The taper lock broaches were then impacted into place. A size 10 stem had good canal fill and rotational stability for trial reduction. A standard 36 mm head was felt to provide appropriate jainism of limb length and excellent stability throughout a full arc of motion. The trial implants were removed. The remainder of the SUE injection was placed around the subcutaneous tissue. The canal was thoroughly irrigated with a shower tip pulsatile lavage. The stem was seated and the head and neck were placed onto the stem. Care was taken to make sure that the trunnion was clean and dry at the time of seating the head. A final reduction was performed. The posterior capsule was carefully repaired with interrupted #2 Ethibond. A 500 mg of vancomycin powder was then sprinkled into the deep portion of the wound. The gluteal fascia was closed with interrupted #2 Ethibond. The skin was closed with subcuticular Vicryl and filemon. A sterile Aquacel bandage was applied. She was returned to the supine position, extubated and transported to the recovery room in stable condition. Estimated blood loss was 75 mL. At the end of the procedure, all needle and sponge counts were correct. Mike Jackson MD DR/GARRY /[id number]
[2019-03-24] MEDS: ACETAMINOPHEN 1000 MG/100 ML IV SCH ×3 (12:14→23:19)
--- NOTE | 2019-03-24 12:16 | Diagnostic Imaging Report ---
Pelvic radiograph-1 view History: Postoperative. Findings: Status post left total hip arthroplasty with prosthetic components in anatomic alignment. Overlying subcutaneous emphysema and surgical skin filemon are present. Hardware appears intact. There are moderate degenerative changes in the right hip and pubic symphysis. No evidence of acute fracture. IMPRESSION: Status post left total hip arthroplasty as above. Signed by: Dr. Maryanne Chua MD on 03/24/2019 12:13 PM
[2019-03-24 12:27] VITALS: BP 125/59
[2019-03-24] MEDS: CEFAZOLIN SOD 1 GM/NS 50ML 50 ML IV SCH ×2 (14:36→21:40)
--- NOTE | 2019-03-24 14:55 | NUR ---
Visit made by the Spiritual Care Department Pastoral Visitor, Alanis Jacobsen. PV provided pastoral presence, prayer, hospitality, and supportive listening. Pastoral Visitor informed pt/family of the scope of Drum Barker Operator Services and availability. ANANT ESPINOZA Water Well Driller Spiritual Care Department O: [phone] Pager: [phone] ([phone] number calling from)
--- NOTE | 2019-03-24 15:54 | NUR ---
PATIENT AMBULATED 400 FT WITH PT. PATIENT BACK IN BED. VITAL SIGNS STABLE NO SIGNS OF DISTRESS. CALL LIGHT IN REACH. WILL CONTINUE TO MONITOR PATIENT.
[2019-03-24 16:00] VITALS: BP 125/62
[2019-03-24] MEDS ORDERED: CELECOXIB 100 MG CAP PO SCH (17:00)
[2019-03-24] MEDS: ASPIRIN 325 MG TAB PO SCH (17:34)
[2019-03-24 20:25] VITALS: BP 133/64
[2019-03-25] VITALS: BP 143/75
[2019-03-25 04:18] VITALS: BP_SYST 120; BP_SYST 137; BP_DIAS 64; BP_DIAS 74
[2019-03-25 05:52] LABS: HEMATOCRIT 31.8 % (34.2-44.1); HEMOGLOBIN 10.6 g/dL (12.0-16.0)
[2019-03-25] MEDS: ACETAMINOPHEN 1000 MG/100 ML IV SCH (06:00)
[2019-03-25] MEDS: SODIUM CHLORIDE 0.9% 1000ML 1,000 ML IV SCH (06:25)
[2019-03-25] MEDS: CEFAZOLIN SOD 1 GM/NS 50ML 50 ML IV SCH (06:30)
--- NOTE | 2019-03-25 07:00 | NUR ---
bedside rounds complete no distress noted, updated on poc voiced understanding, denies pain at this time, dsg to l hip c/d/i, r hand 20g no ss of infiltration noted,no other co voiced call light in reach will continue ot monitor
[2019-03-25 08:10] VITALS: BP 164/74
[2019-03-25] MEDS ORDERED: ASPIRIN325 MG PO (08:25)
[2019-03-25] MEDS ORDERED: AMLODIPINE BESYLATE 5 MG TAB PO SCH (08:30)
[2019-03-25] MEDS ORDERED: HYDRALAZINE HCL 25 MG TAB PO PRN (08:30)
[2019-03-25 09:00] VITALS: BP 164/74
[2019-03-25] MEDS ORDERED: ONDANSETRON HCL 4 MG ORAL DISINTEGRATING TAB PO PRN (09:00)
--- NOTE | 2019-03-25 09:00 | NUR ---
jeff dc'd as per ordered, tolerated well, pt dtv [phone]
[2019-03-25] MEDS: ASPIRIN 325 MG TAB PO SCH (09:02)
[2019-03-25] MEDS ORDERED: ACETAMINOPHEN 1000 MG/100 ML IV PRN (10:30)
--- NOTE | 2019-03-25 11:30 | NUR ---
pt voided 300cc of clear yellow urine
[2019-03-25 11:38] VITALS: BP 140/63
[2019-03-25] MEDS ORDERED: NORCO 10-325 T1 EACH PO (11:55)
[2019-03-25] MEDS: HYDROCODONE/APAP 10MG-325MG TAB PO PRN ×2 (12:07→12:08)
--- NOTE | 2019-03-25 12:11 | NUR ---
NURSE AND NURSE BENEFITS ASSISTANT EXPLAINING DISCHARGE INSTRUCTIONS. NURSE EDUCATING PATIENT ABOUT DISCHARGE MEDICATIONS AND DIAGNOSIS. PATIENT VERBALIZES UNDERSTANDING. PATIENT IS REPEATING BACK THE DISCHARGE INSTRUCTIONS. NURSE ANSWERING ALL QUESTIONS.
--- NOTE | 2019-03-25 12:26 | NUR ---
CM SPOKE TO PATIENT AT BEDSIDE REGARDING DISCHARGE TO REINFORCED EDUCATION FOR HOME HEALTH. PATIENT SIGNED CHOICE AND CHOICE PLACED IN CHART. CLINICAL, PROCEDURE NOTES AND DISCHARGE ORDER SENT TO [facility]. PATIENT CONFIRMED BY LENNY TO RECEIVE HOME HEALTH SERVICES TOMORROW 03/26. [facility] (P) [phone] (F) [phone]
[2019-03-25] MEDS ORDERED: CELECOXIB 200 MG CAP PO SCH (17:00)
[2019-03-25] MEDS ORDERED: SENNOSIDES 8.6 MG TAB PO SCH (21:00)
== END 2019-03-25 13:31 | disposition home health service (06) | DRG 470 ==
LOC: OR 07:17 → PACU V 10:27 → MED/SURG 11:12
PROVIDERS: ADMIT Specialist; ATTEND Specialist
PROC: 0SRB02A Replacement of Left Hip Joint with Metal on Polyethylene Synthetic Substitute, Uncemented, Open Approach (ICD-10-PCS; principal; 2019-03-24 09:00)
DX: M16.12 Unilateral primary osteoarthritis, left hip (principal)
CPT/HCPCS: 36415; 72170; 85014; 85018; 85025; 86850; 86900; 86920; C1713; J0171; J0690; J1100; J1885; J2795; J3370; J7040